=== PATIENT | female | born 1990 | race African-American/Black ===

== ENCOUNTER 2016-10-11 16:14 | Emergency (ER) | payer MEDICAID, OTHER ==
[~2016-10-11] VITALS: Ht 167.6 cm; Wt 77.3 kg
[~2016-10-11 16:14] MED LIST: BACT2OIN TOP; CIPR500T4 PO; HYDR0.2C3 TOP; LORTA5 PO; METR-1 PO
[2016-10-11 16:15] VITALS: BP 144/83; PULSE 84; RESP 16; TEMP 97.9; O2SAT 96
[2016-10-11] MEDS ORDERED: BACT2OIN TOPICAL (16:49)
[2016-10-11] MEDS ORDERED: TRIA0.5O TOPICAL (16:49)
--- NOTE | 2016-10-11 16:49 | PD ---
HPI . hand rash Chief Complaint: Skin Problem Time Seen by Provider: 16:36 Travel History International Travel<30 days: No Contact w/Intl Traveler<30days: No Traveled to known affect area: No History of Present Illness HPI Patient presents with a 5 day history of a rash on the right hand. She states that she's been using some [id number] hydrocortisone cream without relief. Before and seen here and given and ointment that helped. She states that the rash is quite painful. PFSH Past Medical History ?: Not LMP: 10/02/2016 Social History Alcohol Use: No Tobacco Use: No Substance Use: No Allergies-Medications (Allergen,Severity, Reaction): Coded Allergies: No Known Allergies (Verified , 04/26/13) Reported Meds & Prescriptions Reported Meds & Active Scripts Active Bactroban 2% Oint (22 gm) (Mupirocin) 22 Gm Oint 2 % TOP BID APPLY TO AFFECTED AREAS Westcort (Hydrocortisone Valerate) 0.2 % Cre 1 Applic TOP TID APPLY TO: Hydrocodone/Acetaminophen 5 mg/325 mg 1 Tab Tab 1-2 Tab PO Q6 PRN Flagyl (Metronidazole) 500 Mg Tab 500 Mg PO QID 10 Days Cipro (Ciprofloxacin HCl) 500 Mg Tab 500 Mg PO BID 10 Days Review of Systems Except as stated in HPI: all other systems reviewed are Neg General / Constitutional: No: Fever, Chills Skin: Positive Rash Physical Exam Narrative GENERAL: This is a healthy-appearing woman in no acute distress. SKIN: Warm and dry. She has very dry, thickened skin on the fingers of her right hand. The skin is cracked. There is no drainage. There is no redness or warmth. HEAD: Atraumatic. Normocephalic. EYES: Pupils equal and round. ENT: No nasal bleeding or discharge. Mucous membranes pink and moist. NECK: Trachea midline. MUSCULOSKELETAL: No obvious deformities. No edema. NEUROLOGICAL: Awake and alert. No obvious cranial nerve deficits. Motor grossly within normal limits. Normal speech. PSYCHIATRIC: Appropriate mood and affect; insight and judgment normal. Data Data Last Documented VS Vital Signs Date Time Temp Pulse Resp B/P Pulse Ox O2 Delivery O2 Flow Rate FiO2 10/11/16 16:15 97.9 84 16 144/83 96 Room Air MDM Medical Decision Making Medical Screen Exam Complete: Yes Emergency Medical Condition: Yes Medical Record Reviewed: Yes (patient has been seen here before with similar complaints and has been treated with Bactroban or weight ointment.) Differential Diagnosis Differential diagnosis of rash includes but is not limited to contact dermatitis , local allergic reaction, psoriasis, eczema, viral exanthem Narrative Course Patient presents for treatment of a rash on her right hand. Diagnosis Primary Impression: Dyshidrotic eczema Scripts Triamcinolone Topical 0.5 % Oint1 Applic TOPICAL BID 10 Days Ref 0 Prov:Qi Lake MD 10/11/16 Mupirocin Topical (Bactroban Topical)2% Oint1 Appl TOPICAL BID 10 Days Ref 0 Prov:Qi Lake MD 10/11/16 Disposition: 01 DISCHARGE HOME Condition: Stable Qi Lake MD Oct 11, 2016 16:49
== END 2016-10-11 17:32 | disposition home or self-care (01) ==
LOC: NEPB 16:14
DX: R21 Rash and other nonspecific skin eruption (principal)
CPT/HCPCS: 99283

== ENCOUNTER 2016-12-17 12:31 | Emergency (ER) | payer OTHER ==
[~2016-12-17] VITALS: Ht 167.6 cm; Wt 74.0 kg
[~2016-12-17 12:31] MED LIST changes: +BACT2OIN TOPICAL; +TRIA0.5O TOPICAL
[2016-12-17 12:33] VITALS: BP 136/85; PULSE 95; RESP 17; TEMP 97.8; O2SAT 98
--- NOTE | 2016-12-17 13:53 | PD ---
HPI Chief Complaint: GI Complaint Time Seen by Provider: 13:53 Travel History International Travel<30 days: No Contact w/Intl Traveler<30days: No Traveled to known affect area: No History of Present Illness HPI 26-year-old female presents to the emergency department for evaluation of intermittent lower abdominal sharp pain. She states she took a positive test over the weekend. Patient states her LMP was November 01, 2016. She is a G2, P0. Patient denies any other symptoms or complaints. She denies any abnormal vaginal discharge or risk of STDs. She denies any vaginal bleeding. She has no chronic medical problems and takes no prescribed medications. Patient does state this is an unwanted and she wants to have an . PFSH Past Medical History ?: LMP: 11/01/16 Social History Alcohol Use: No Tobacco Use: No Substance Use: No Allergies-Medications (Allergen,Severity, Reaction): Coded Allergies: No Known Allergies (Verified , 12/17/16) Reported Meds & Prescriptions Reported Meds & Active Scripts Active No Active Prescriptions or Reported Medications Review of Systems Except as stated in HPI: all other systems reviewed are Neg Physical Exam Narrative GENERAL: Well-nourished, well-developed female patient, ambulatory. Afebrile. SKIN: Focused skin assessment warm/dry. HEAD: Normocephalic. Atraumatic. EYES: No scleral icterus. No injection or drainage. NECK: Supple, trachea midline. No JVD or lymphadenopathy. CARDIOVASCULAR: Regular rate and rhythm without murmurs, gallops, or rubs. RESPIRATORY: Breath sounds equal bilaterally. No accessory muscle use. Lungs sounds clear to auscultation GASTROINTESTINAL: Abdomen soft, non-tender, nondistended. No pain to palpation. MUSCULOSKELETAL: No cyanosis, or edema. BACK: Nontender without obvious deformity. No CVA tenderness. Data Data Last Documented VS Vital Signs Date Time Temp Pulse Resp B/P Pulse Ox O2 Delivery O2 Flow Rate FiO2 12/17/16 13:59 78 16 132/72 100 Room Air 12/17/16 12:33 97.8 Orders Urinalysis - C+S If Indicated (12/17/16 13:53) Ed Urine Pregnancytest Poc (12/17/16 13:53) Ed Poc Ultrasound (12/17/16 ) Ed Poc Ultrasound (12/17/16 ) Labs Laboratory Tests Test 12/17/16 13:56 Urine Color YELLOW Urine Turbidity HAZY Urine pH 6.0 Urine Specific [place] 1.032 Urine Protein TRACE mg/dL Urine Glucose (UA) NEG mg/dL Urine Ketones TRACE mg/dL Urine Occult Blood NEG Urine Nitrite NEG Urine Bilirubin NEG Urine Urobilinogen LESS THAN 2.0 MG/DL Urine Leukocyte Esterase MOD Urine RBC 3 /hpf Urine Squamous Epithelial 4 /hpf Cells Urine Bacteria OCC /hpf Urine Mucus MANY /lpf Microscopic Urinalysis Comment CULT NOT INDICATED MDM Medical Decision Making Medical Screen Exam Complete: Yes Emergency Medical Condition: Yes Medical Record Reviewed: Yes Differential Diagnosis First trimester versus ectopic versus UTI Narrative Course 26-year-old female presents to the emergency department for evaluation of mild abdominal cramping during . Her last menstrual cycle was every 2016. UA shows moderate leukocyte esterase, occasional bacteria. Urine test is positive. Ultrasound was completed by my attending physician , Dr. Williamson. Unable to visualize fetus at this time. Symptoms are not consistent with ectopic . Patient is given information to [facility] due to her not wanting to keep this . She is instructed on emergent symptoms to immediately return for. She verbalizes agreement and understanding. Due to asymptomatic bacteria in her urine, she'll be started on Macrobid. The patient was discharged in stable condition with instructions, including return instructions and follow up instructions. Diagnosis Primary Impression: First trimester Additional Impression: Asymptomatic bacteriuria during Referrals: Framer call for appointment Patient Instructions: First Trimester (ED), General Instructions Additional Instructions: Take Macrobid as directed until gone. [facility], , is closest facility for termination. Follow up with gynecology. Return to the emergency department department for any acute, worsening of symptoms. Med/Other Pt SpecificInfo: Prescription(s) given Scripts Nitrofurantoin Monohydrate Macrocrystals (Macrobid)100 Mg [id number] Mg PO BID 7 Days Ref 0 Prov:Ivet Lambert 12/17/16 Disposition: 01 DISCHARGE HOME Condition: Stable Ivet Lambert Dec 17, 2016 13:53
[2016-12-17 13:59] VITALS: BP 132/72; PULSE 78; RESP 16; O2SAT 100
[2016-12-17 14:20] LABS: BLOOD, URINE NEG (NEG); COMMENT (UR) CULT NOT INDICATED; CULTURE IF INDICATED CULT NOT INDICATED; GLUCOSE,URINE NEG (NEG); KETONE, URINE TRACE mg/dL (NEG); MUCUS URINE MANY /lpf (OCC); NITRITE,URINE NEG (NEG); SQUAMOUS EPITHELIAL CELL URINE 4 /hpf (0-5); URINE COLOR YELLOW (YELLW/STRAW)
[2016-12-17 14:22] LABS: BACTERIA, URINE OCC /hpf
--- NOTE | 2016-12-17 14:41 | PD ---
Data Data Last Documented VS Vital Signs Date Time Temp Pulse Resp B/P Pulse Ox O2 Delivery O2 Flow Rate FiO2 12/17/16 13:59 78 16 132/72 100 Room Air 12/17/16 12:33 97.8 Orders Urinalysis - C+S If Indicated (12/17/16 13:53) Ed Urine Pregnancytest Poc (12/17/16 13:53) Ed Poc Ultrasound (12/17/16 ) Ed Poc Ultrasound (12/17/16 ) Labs Laboratory Tests Test 12/17/16 13:56 Urine Color YELLOW Urine Turbidity HAZY Urine pH 6.0 Urine Specific [place] 1.032 Urine Protein TRACE mg/dL Urine Glucose (UA) NEG mg/dL Urine Ketones TRACE mg/dL Urine Occult Blood NEG Urine Nitrite NEG Urine Bilirubin NEG Urine Urobilinogen LESS THAN 2.0 MG/DL Urine Leukocyte Esterase MOD Urine RBC 3 /hpf Urine Squamous Epithelial 4 /hpf Cells Urine Bacteria OCC /hpf Urine Mucus MANY /lpf Microscopic Urinalysis Comment CULT NOT INDICATED MDM Supervised Visit with ALYSA: Yes Narrative Course I, Dr. Williamson, have reviewed the advance practice practioner's documentation and am in agreement, met with the patient face to face, made the diagnosis, and the medical decision making was done by me. *My assessment and Findings: 26-year-old female here with complaint of possible and pelvic discomfort. LMP of 11/01/16. She's not had 2 days of discomfort within the pelvis. No genuine pain, vaginal bleeding or discharge. Patient is concerned something dry with the . She does note that she wants to terminate this as it was not planned. Abdominal examination is benign. Differential includes UTI, and less likely ectopic given lack of severe pain or vaginal bleeding. test was positive. Urinalysis with symptomatic bacteria, will treat with Macrobid for home. Bedside ultrasound performed without evidence of IUP. Patient was discharged home and encouraged to follow-up with [facility] to establish care for this and given referral for termination if as what she chooses. Procedures Procedure Narrative Emergency Department Pelvic ultrasound was performed with patient consent. The curvilinear probe was used in the transverse and sagittal views within the suprapubic region revealing no evidence of intrauterine . Scripts No Active Prescriptions or Reported Meds Pau Williamson MD Dec 17, 2016 14:41
[2016-12-17] MEDS ORDERED: MACR100C2 PO (14:43)
== END 2016-12-17 15:04 | disposition home or self-care (01) ==
LOC: NEPD 12:31
DX: O26.891 Other specified pregnancy related conditions, first trimester (principal); Z3A.00 Weeks of gestation of pregnancy not specified; Z64.0 Problems related to unwanted pregnancy
CPT/HCPCS: 81001; 84703; 99284